=== PATIENT | male | born 1965 | race African-American/Black ===

== ENCOUNTER 2016-08-08 10:36 | Inpatient (IN) | payer OTHER ==
[2016-08-08 13:54] VITALS: BMI 29.8
--- NOTE | 2016-08-08 16:53 | HP ---
CIWA Score - CIWA Score Nausea/Vomitin-No Nausea/No Vomiting Muscle Tremors: 4-Moderate,w/Arms Extend Anxiety: 4-Mod. Anxious/Guarded Agitation: 4-Moderately Restless Paroxysmal Sweats: 1-Minimal Palms Moist Orientation: 0-Oriented Tacttile Disturbances: 3-Moderate Itch/Numb/Burn Auditory Disturbances: 0-None Visual Disturbances: 0-None Headache: 0-None Present CIWA-Ar Total Score: 16 Admission ROS S - HPI Chief Complaint: DETOX TX FOR ALCOHOL DEPENDENCE Allergies/Adverse Reactions: Allergies Allergy/AdvReac Type Severity Reaction Status Date / Time No Known Allergies Allergy Verified 08/08/16 14:39 History of Present Illness: 50 Y/O AA/MALE WITH A HX OF ALCOHOL AND COCAINE DEPENDENCE SEEKING DETOX TX. FIRST TIME HERE. PT STATES HE SUSTAINED RIGHT SHOULDER INJURY LIFTING WEIGHTS. 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 FX BONE.), Tearing, Nose Congestion, Dental Problems (DENTURES, MURALI.) Respiratory: reports: No Symptoms reported Cardiac: reports: Lightheadedness GI: reports: Poor Fluid Intake : reports: Frequency Musculoskeletal: reports: Back Pain Integumentary: reports: Dryness, Rash (ECZEMA ON HANDS) Neuro: reports: Headache, Tremors, Unsteady Gait, Dizziness Endocrine: reports: No Symptoms Reported Hematology: reports: No Symptoms Reported Psychiatric: reports: Orientated x3, Anxious, Depressed Other Systems: Reviewed and Negative Patient History - Patient Medical History Hx Anemia: No Hx Asthma: No Hx Chronic Obstructive Pulmonary Disease (COPD): No Hx Cardiac Disorders: No Hx Hypertension: No Hx Hypercholesterolemia: No HX Cerebrovascular Accident: No Hx Seizures: No Hx Diabetes: No Hx Gastrointestinal Disorders: No Hx Genitourinary Disorders: No Hx Sexually Transmitted Disorders: No (SYPHILIS HX) Hx Renal Disease (ESRD): No Hx Thyroid Disease: No Hx Human Immunodeficiency Virus (HIV): No (NEGATIVE HX) Hx Hepatitis C: No Hx Depression: Yes (NOT CURRENTLY ON MED) Hx Suicide Attempt: No (DENIES) Hx Schizophrenia: No - Patient Surgical History Past Surgical History: Yes Hx Neurologic Surgery: No Hx Cataract Extraction: No Hx Cardiac Surgery: No Hx Lung Surgery: No Hx Breast Surgery: No Hx Breast Biopsy: No Hx Abdominal Surgery: No Hx Appendectomy: No Hx Cholecystectomy: No Hx Genitourinary Surgery: No Hx Section: No Hx Orthopedic Surgery: No Other Surgical History: anus in 2007 - PPD History Previous Implant?: Yes Documented Results: Negative w/o proof Implanted On Prior R Admission?: No PPD to be Administered?: Yes - Reproductive History Patient is a Female of Child Bearing Age (11 -55 yrs old): No (MALE) - Smoking Cessation Smoking history: Current every day smoker Have you smoked in the past 12 months: Yes Aproximately how many cigarettes per day: 10 Hx Chewing Tobacco Use: No Initiated information on smoking cessation: Yes 'Breaking Loose' booklet given: 08/08/16 - Substance & Tx. History Hx Alcohol Use: Yes (BEER) Hx Substance Use: Yes (COCAINE) Substance Use Type: Alcohol, Cocaine Hx Substance Use Treatment: Yes ([facility]) - Substances Abused Cocaine Route: Inhalation Frequency: 1-3 times last 30 days Amount used: $100 Age of first use: 20 Date of Last Use: 08/06/16 Alcohol-beer Route: Oral Frequency: Daily Amount used: 2-6 pks. Age of first use: 16 Date of Last Use: 08/08/16 Family Disease History - Family Disease History Family History: Denies Admission Physical Exam [facility] - Vital Signs Vital Signs: Vital Signs - 24 hr 08/08/16 13:52 Temperature 96.8 F L Pulse Rate 102 H Respiratory 18 Rate Blood Pressure 117/73 - Physical General Appearance: Yes: Moderate Distress, Irritable, Anxious HEENTM: Yes: EOMI, Normocephalic, NEEL, Pharynx Normal Respiratory: Yes: Chest Non-Tender, Lungs Clear, Normal Breath Sounds, No Respiratory Distress Neck: Yes: Supple, Trachea in good position Breast: Yes: Breast Exam Deferred Cardiology: Yes: Regular Rhythm, Regular Rate, S1, S2 Abdominal: Yes: Normal Bowel Sounds, Non Tender, Soft Genitourinary: Yes: Other (N/C) Back: Yes: Within Normal Limits Musculoskeletal: Yes: full range of Motion, Gait Steady, Back pain Extremities: Yes: Normal Range of Motion, Non-Tender Neurological: Yes: 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 II-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 NML intact, Fully Oriented, Alert Integumentary: Yes: Dry, Warm Lymphatic: Yes: Within Normal Limits - Diagnostic (1) Alcohol dependence with uncomplicated withdrawal Current Visit: Yes Status: Acute (2) Cocaine dependence, uncomplicated Current Visit: Yes Status: Acute (3) History of depression Current Visit: Yes Status: Chronic Cleared for Admission [facility] - Detox or Rehab [facility] Level of Care: Medically Managed Detox Regimen/Protocol: Librium [facility] Breath Alcohol Content Breath Alcohol Content: 0 Urine Drug Screen - Results Drug Screen Negative: No Urine Drug Screen Results: JOCELYN-Cocaine, OPI-Opiates
[2016-08-08] MEDS ORDERED: NICOTINE POLACRILEX 2 MG GUM BC PRN (17:15)
[2016-08-08] MEDS ORDERED: MAGNESIUM CITRATE 300 ML BOTTLE PO PRN (17:15)
[2016-08-08] MEDS ORDERED: ACETAMINOPHEN 325 MG TABLET (FP) PO PRN (17:15)
[2016-08-08] MEDS ORDERED: P-EPHED 60MG/TRIPROLIDI 2.5MG TABLET PO PRN (17:15)
[2016-08-08] MEDS ORDERED: LOPERAMIDE HCL 2 MG CAPSULE PO PRN (17:15)
[2016-08-08] MEDS ORDERED: MAG HYDROX/AL HYDROX/SIMETH 30 ML UNIT-DOSE CUP PO PRN (17:15)
[2016-08-08] MEDS ORDERED: guaiFENesin/D-METHORPHAN HB 10 ML UNIT-DOSE CUPS PO PRN (17:15)
[2016-08-08] MEDS ORDERED: hydrOXYzine PAMOATE 25 MG CAPSULE (FP) PO PRN (17:15)
[2016-08-08] MEDS ORDERED: MAGNESIUM HYDROX 2400MG/30ML ORAL SUSPENSION 30 ML CUP PO PRN (17:15)
[2016-08-08] MEDS ORDERED: MENTHOL/PHENOL 1 EACH UD MM PRN (17:15)
[2016-08-08] MEDS ORDERED: IBUPROFEN 400 MG TABLET (FP) PO PRN (17:15)
[2016-08-08] MEDS ORDERED: chlordiazePOXIDE HCL 25 MG CAPSULE PO PRN (17:15)
[2016-08-08] MEDS ORDERED: diphenhydrAMINE HCL 50 MG CAPSULE PO PRN (17:15)
[2016-08-08] MEDS ORDERED: chlordiazePOXIDE HCL 25 MG CAPSULE PO ONE (17:45)
[2016-08-08] MEDS ORDERED: COLLOIDAL OATMEAL 1 BAR EACH TP SCH (17:45)
[2016-08-08] MEDS ORDERED: AMMONIUM LACTATE 12% LOTION 225 GM BOTTLE TP SCH (17:45)
[2016-08-08] MEDS: NICOTINE 14 MG/24 HOURS TOPICAL PATCH TD SCH (18:14)
[2016-08-08] MEDS: THIAMINE HCL 100 MG TABLET (FP) PO SCH (22:27)
[2016-08-08] MEDS: chlordiazePOXIDE HCL 25 MG CAPSULE PO SCH (22:27)
[2016-08-08 23:07] LABS: URINE APPEARANCE CLEAR; URINE BILIRUBIN NEGATIVE (NEGATIVE); URINE BLOOD NEGATIVE (NEGATIVE); URINE COLOR AMBER; URINE GLUCOSE (UA) NEGATIVE (NEGATIVE); URINE KETONE NEGATIVE (NEGATIVE); URINE NITRITE NEGATIVE (NEGATIVE); URINE UROBILINOGEN 4.0 E.U/dl E.U./dl (0.2-1.0)
[2016-08-08 23:12] LABS: URINE LEUK ESTERASE TRACE (NEGATIVE); URINE PROTEIN 1+ (NEGATIVE)
[2016-08-08 23:16] LABS: URINE MUCUS MANY; URINE RBC 1 /hpf (0-3); URINE WBC 12 /hpf (3-5)
[2016-08-09] MEDS: chlordiazePOXIDE HCL 25 MG CAPSULE PO SCH ×4 (05:51→22:24)
[2016-08-09] MEDS: NICOTINE 14 MG/24 HOURS TOPICAL PATCH TD SCH (10:24)
[2016-08-09] MEDS: PRENATAL VITAMINS W/ FOLIC ACID TABLET (FP) PO SCH (10:24)
[2016-08-09 10:33] LABS: MCH 31.4 pg (25.7-33.7); MCHC 33.2 g/dl (32.0-35.9); MEAN CELL VOLUME 94.6 fl (80-96); MEAN PLT VOLUME 9.7 fl (7.5-11.1); PLATELET COUNT 197 K/MM3 (134-434); RDW 11.8 % (11.9-15.9); WHITE BLOOD COUNT 3.3 K/mm3 (4.0-10.0)
[2016-08-09 10:36] LABS: ALBUMIN 2.9 g/dl (3.4-5.0); GLUCOSE,RANDOM 96 mg/dL (74-106)
[2016-08-09 10:41] LABS: ALK PHOS 60 U/L (45-117); ANION GAP 4 (8-16); BILIRUBIN,TOTAL 0.4 mg/dL (0.2-1.0); CALCIUM 8.3 mg/dL (8.5-10.1); CO2 31 mmol/L (21-32); SGOT/AST 24 U/L (15-37); SGPT/ALT 36 U/L (12-78); TOT PROT 6.6 g/dl (6.4-8.2)
--- NOTE | 2016-08-09 10:51 | PN ---
[facility] CIWA - CIWA Score Nausea/Vomitin-No Nausea/No Vomiting Muscle Tremors: 4-Moderate,w/Arms Extend Anxiety: 4-Mod. Anxious/Guarded Agitation: 3 Paroxysmal Sweats: 3 Orientation: 0-Oriented Tacttile Disturbances: 0-None Auditory Disturbances: 0-None Visual Disturbances: 0-None Headache: 0-None Present CIWA-Ar Total Score: 14 S Progress Note (SOAP) Subjective: Anxiety,tremors,sweating,interrupted sleep,restless Objective: 08/09/16 10:50 Vital Signs - 8 hr 08/09/16 08/09/16 05:55 09:48 Temperature 97.7 F 97.1 F L Pulse Rate 78 82 Respiratory 16 18 Rate Blood Pressure 119/85 113/75 Laboratory Tests 08/08/16 22:50 Urine Color Shanell Urine Appearance Clear Urine pH 5.0 Ur Specific [place] 1.019 Urine Protein 1+ H Urine Glucose (UA) Negative Urine Ketones Negative Urine Blood Negative Urine Nitrite Negative Urine Bilirubin Negative Urine Urobilinogen 4.0 e.u/dl Ur Leukocyte Esterase Trace H Urine RBC 1 Urine WBC 12 Ur Epithelial Cells Rare Urine Mucus Many labs noted Assessment: 08/09/16 10:51 Withdrawal sx. Plan: Continue detox
--- NOTE | 2016-08-09 11:07 | EKG ---
Test Reason : Blood Pressure : / mmHG Vent. Rate : 071 BPM Atrial Rate : 071 BPM P-R Int : 152 ms QRS Dur : 072 ms QT Int : 394 ms P-R-T Axes : 055 062 043 degrees QTc Int : 428 ms NORMAL SINUS RHYTHM WITH SINUS ARRHYTHMIA NORMAL ECG NO PREVIOUS ECGS AVAILABLE Confirmed by ANASTACIO SINHA MD ([id number]) on 08/09/2016 11:07:15 AM Referred By: Confirmed By:ANASTACIO SINHA MD
--- NOTE | 2016-08-09 11:36 | CONSULT ---
[facility] Psychiatric Consult - Data Date of interview: 08/09/16 Admission source: [facility] Identifying data: First admission to [facility] for this 50 y/o AA male seeking detox treatment on for alcohol and cocaine dependence.Patientis single without children,homeless,unemployed and deprived of any source of income. Substance Abuse History: Smoking Cessation. Smoking history: Current every day smoker. Have you smoked in the past 12 months: Yes. Aproximately how many cigarettes per day: 10. Hx Chewing Tobacco Use: No. Initiated information on smoking cessation: Yes. 'Breaking Loose' booklet given: 08/08/16. - Substance & Tx. History. Hx Alcohol Use: Yes (BEER). Hx Substance Use: Yes (COCAINE). Substance Use Type: Alcohol, Cocaine. Hx Substance Use Treatment: Yes ([facility]). - Substances Abused. Cocaine. Route: Inhalation. Frequency: 1-3 times last 30 days. Amount used: $100. Age of first use: 20. Date of Last Use: 08/06/16. Alcohol-beer. Route: Oral. Frequency: Daily. Amount used: 2-6 pks. Age of first use: 16. Date of Last Use: 08/08/16. Confirmed by patient in this session. Medical History: Eczema (hands),trauma to right shoulder (weightlifting accident ) and a history of treatment for syphilis. Psychiatric History: Patient denies history of psychiatric hospitalizations.He admits to a brief contact with a psychiatrist to address insomnia.Mr Owens reports past treatment with remeron (dose not recalled).He declines to resume any psychotropic medications other than detox drugs.No history of suicide attempts. Physical/Sexual Abuse/Trauma History: Patient denies. Additional Comment: Urine Drug Screen Results: JOCELYN-Cocaine, OPI-Opiates.Noted. Mental Status Exam - Mental Status Exam Alert and Oriented to: Time, Place, Person Cognitive Function: Good Patient Appearance: Disheveled Mood: Nervous, Withdrawn Affect: Mood Congruent Patient Behavior: Fatigued, Uncooperative Speech Pattern: Clear Voice Loudness: Normal Thought Process: Goal Oriented Thought Disorder: Not Present Hallucinations: Denies Suicidal Ideation: Denies Homicidal Ideation: Denies Insight/Judgement: Poor Sleep: Fair Appetite: Good Muscle strength/Tone: Normal Gait/Station: Normal Psychiatric Findings - Problem List ([place] 1, 2,3) (1) Alcohol dependence with uncomplicated withdrawal Current Visit: Yes Status: Acute (2) Cocaine dependence, uncomplicated Current Visit: Yes Status: Acute (3) Nicotine dependence Current Visit: Yes Status: Acute (4) Substance induced mood disorder Current Visit: Yes Status: Acute - Initial Treatment Plan Initial Treatment Plan: Psychoeducatioin.Detoxification.Observation.
[2016-08-09 12:43] LABS: SICKLE CELL SCREEN POSITIVE (NEGATIVE)
[2016-08-09] MEDS: THIAMINE HCL 100 MG TABLET (FP) PO SCH (22:24)
[2016-08-10] MEDS: chlordiazePOXIDE HCL 25 MG CAPSULE PO SCH ×3 (06:19→17:13)
[2016-08-10] MEDS: PRENATAL VITAMINS W/ FOLIC ACID TABLET (FP) PO SCH (10:21)
[2016-08-10] MEDS: NICOTINE 14 MG/24 HOURS TOPICAL PATCH TD SCH (10:21)
--- NOTE | 2016-08-10 14:39 | PN ---
S CIWA - CIWA Score Nausea/Vomitin-No Nausea/No Vomiting Muscle Tremors: 3 Anxiety: 3 Agitation: 4-Moderately Restless Paroxysmal Sweats: 3 Orientation: 0-Oriented Tacttile Disturbances: 0-None Auditory Disturbances: 0-None Visual Disturbances: 0-None Headache: 0-None Present CIWA-Ar Total Score: 13 [facility] Progress Note (SOAP) Subjective: Anxiety,sweating,tremors,interrupted sleep,restless. Objective: 08/10/16 14:38 Vital Signs - 8 hr 08/10/16 08/10/16 09:46 13:19 Temperature 96.0 F L 97.2 F L Pulse Rate 93 H 78 Respiratory 20 20 Rate Blood Pressure 121/77 118/79 Laboratory Tests 08/08/16 08/08/16 08/09/16 07:00 22:50 07:00 WBC 3.3 L RBC 4.11 Hgb 12.9 Hct 38.9 MCV 94.6 MCHC 33.2 RDW 11.8 L Plt Count 197 MPV 9.7 Sickle Cell Screen Positive Sodium Potassium Chloride Carbon Dioxide Anion Gap BUN Creatinine Creat Clearance w eGFR Random Glucose Calcium Total Bilirubin AST ALT Alkaline Phosphatase Total Protein Albumin Urine Color Shanell Urine Appearance Clear Urine pH 5.0 Ur Specific [place] 1.019 Urine Protein 1+ H Urine Glucose (UA) Negative Urine Ketones Negative Urine Blood Negative Urine Nitrite Negative Urine Bilirubin Negative Urine Urobilinogen 4.0 e.u/dl Ur Leukocyte Esterase Trace H Urine RBC 1 Urine WBC 12 Ur Epithelial Cells Rare Urine Mucus Many RPR Titer Hepatitis C Antibody <0.1 08/09/16 08/09/16 07:00 07:00 WBC RBC Hgb Hct MCV MCHC RDW Plt Count MPV Sickle Cell Screen Sodium 142 Potassium 3.8 Chloride 107 Carbon Dioxide 31 Anion Gap 4 L BUN 8 Creatinine 1.0 Creat Clearance w eGFR > 60 Random Glucose 96 Calcium 8.3 L Total Bilirubin 0.4 AST 24 ALT 36 Alkaline Phosphatase 60 Total Protein 6.6 Albumin 2.9 L Urine Color Urine Appearance Urine pH Ur Specific [place] Urine Protein Urine Glucose (UA) Urine Ketones Urine Blood Urine Nitrite Urine Bilirubin Urine Urobilinogen Ur Leukocyte Esterase Urine RBC Urine WBC Ur Epithelial Cells Urine Mucus RPR Titer Nonreactive Hepatitis C Antibody labs noted Assessment: 08/10/16 14:38 Withdrawal sx. Plan: Continue detox
[2016-08-10] MEDS: THIAMINE HCL 100 MG TABLET (FP) PO SCH (22:40)
[2016-08-10] MEDS: chlordiazePOXIDE 5 MG CAPSULE PO SCH (22:40)
[2016-08-11] MEDS: chlordiazePOXIDE 5 MG CAPSULE PO SCH ×2 (05:21→10:25)
[2016-08-11 09:36] VITALS: BP 104/74; PULSE 86; TEMP 96.4
[2016-08-11] MEDS: NICOTINE 14 MG/24 HOURS TOPICAL PATCH TD SCH (10:25)
[2016-08-11] MEDS: PRENATAL VITAMINS W/ FOLIC ACID TABLET (FP) PO SCH (10:25)
--- NOTE | 2016-08-11 10:26 | PN ---
[facility] Progress Note (SOAP) Subjective: Sweating,interrupted sleep,restless. Objective: 08/11/16 10:24 Vital Signs - 8 hr 08/11/16 08/11/16 07:02 09:36 Temperature 98.4 F 96.4 F L Pulse Rate 74 86 Respiratory 18 16 Rate Blood Pressure 113/73 104/74 Laboratory Tests 08/08/16 08/08/16 08/09/16 07:00 22:50 07:00 WBC 3.3 L RBC 4.11 Hgb 12.9 Hct 38.9 MCV 94.6 MCHC 33.2 RDW 11.8 L Plt Count 197 MPV 9.7 Sickle Cell Screen Positive Sodium Potassium Chloride Carbon Dioxide Anion Gap BUN Creatinine Creat Clearance w eGFR Random Glucose Calcium Total Bilirubin AST ALT Alkaline Phosphatase Total Protein Albumin Urine Color Shanell Urine Appearance Clear Urine pH 5.0 Ur Specific [place] 1.019 Urine Protein 1+ H Urine Glucose (UA) Negative Urine Ketones Negative Urine Blood Negative Urine Nitrite Negative Urine Bilirubin Negative Urine Urobilinogen 4.0 e.u/dl Ur Leukocyte Esterase Trace H Urine RBC 1 Urine WBC 12 Ur Epithelial Cells Rare Urine Mucus Many RPR Titer Hepatitis C Antibody <0.1 08/09/16 08/09/16 07:00 07:00 WBC RBC Hgb Hct MCV MCHC RDW Plt Count MPV Sickle Cell Screen Sodium 142 Potassium 3.8 Chloride 107 Carbon Dioxide 31 Anion Gap 4 L BUN 8 Creatinine 1.0 Creat Clearance w eGFR > 60 Random Glucose 96 Calcium 8.3 L Total Bilirubin 0.4 AST 24 ALT 36 Alkaline Phosphatase 60 Total Protein 6.6 Albumin 2.9 L Urine Color Urine Appearance Urine pH Ur Specific [place] Urine Protein Urine Glucose (UA) Urine Ketones Urine Blood Urine Nitrite Urine Bilirubin Urine Urobilinogen Ur Leukocyte Esterase Urine RBC Urine WBC Ur Epithelial Cells Urine Mucus RPR Titer Nonreactive Hepatitis C Antibody labs noted Assessment: 08/11/16 10:25 Withdrawal sx. Plan: Continue detox
--- NOTE | 2016-08-11 15:23 | DS ---
[facility] Detox Discharge Summary Admission Date: 08/08/16 Discharge Date: 08/11/16 - History Present History: Alcohol Dependence, Cocaine Dependence Pertinent Past History: mood disorder - Physical Exam Results Vital Signs: Vital Signs Temperature 96.4 F L 08/11/16 09:36 Pulse Rate 86 08/11/16 09:36 Respiratory Rate 16 08/11/16 09:36 Blood Pressure 104/74 08/11/16 09:36 O2 Sat by Pulse Oximetry (%) Pertinent Admission Physical Exam Findings: Withdrawal sx. Laboratory Tests 08/08/16 08/08/16 08/09/16 07:00 22:50 07:00 WBC 3.3 L RBC 4.11 Hgb 12.9 Hct 38.9 MCV 94.6 MCHC 33.2 RDW 11.8 L Plt Count 197 MPV 9.7 Sickle Cell Screen Positive Sodium Potassium Chloride Carbon Dioxide Anion Gap BUN Creatinine Creat Clearance w eGFR Random Glucose Calcium Total Bilirubin AST ALT Alkaline Phosphatase Total Protein Albumin Urine Color Shanell Urine Appearance Clear Urine pH 5.0 Ur Specific [place] 1.019 Urine Protein 1+ H Urine Glucose (UA) Negative Urine Ketones Negative Urine Blood Negative Urine Nitrite Negative Urine Bilirubin Negative Urine Urobilinogen 4.0 e.u/dl Ur Leukocyte Esterase Trace H Urine RBC 1 Urine WBC 12 Ur Epithelial Cells Rare Urine Mucus Many RPR Titer Hepatitis C Antibody <0.1 08/09/16 08/09/16 07:00 07:00 WBC RBC Hgb Hct MCV MCHC RDW Plt Count MPV Sickle Cell Screen Sodium 142 Potassium 3.8 Chloride 107 Carbon Dioxide 31 Anion Gap 4 L BUN 8 Creatinine 1.0 Creat Clearance w eGFR > 60 Random Glucose 96 Calcium 8.3 L Total Bilirubin 0.4 AST 24 ALT 36 Alkaline Phosphatase 60 Total Protein 6.6 Albumin 2.9 L Urine Color Urine Appearance Urine pH Ur Specific [place] Urine Protein Urine Glucose (UA) Urine Ketones Urine Blood Urine Nitrite Urine Bilirubin Urine Urobilinogen Ur Leukocyte Esterase Urine RBC Urine WBC Ur Epithelial Cells Urine Mucus RPR Titer Nonreactive Hepatitis C Antibody labs noted - Medication Discharge Medications: Ambulatory Orders NK [No Known Home Medication] 08/08/16 - Diagnosis (1) Alcohol dependence with uncomplicated withdrawal Status: Acute (2) Cocaine dependence, uncomplicated Status: Acute (3) Nicotine dependence Status: Acute Qualifiers: Nicotine product type: cigarettes Substance use status: uncomplicated Qualified Code(s): F17.210 - Nicotine dependence, cigarettes, uncomplicated (4) Substance induced mood disorder Status: Acute - AMA Did Patient Leave Against Medical Advice: No (non-compliance with unit's rules)
[2016-08-11] MEDS ORDERED: chlordiazePOXIDE HCL 10 MG CAPSULE PO SCH (23:00)
[2016-08-12 00:06] LABS: Hgb A2 4.5 % (0.7-3.1)
== END 2016-08-11 11:12 | disposition home or self-care (01) | DRG 774 ==
LOC: YASAS 10:36 → Y3N 17:28
PROVIDERS: ADMIT Internal Medicine; ATTEND Internal Medicine
PROC: HZ2ZZZZ Detoxification Services for Substance Abuse Treatment (ICD-10-PCS; principal; 2016-08-11)
DX: F10.230 Alcohol dependence with withdrawal, uncomplicated (principal); F14.20 Cocaine dependence, uncomplicated; F17.210 Nicotine dependence, cigarettes, uncomplicated; F19.24 Other psychoactive substance dependence with psychoactive substance-induced mood disorder; F32.9 Major depressive disorder, single episode, unspecified
CPT/HCPCS: 36415; 80053; 81003; 81015; 83021; 85027; 85660; 86593; 93005; 93010